=== PATIENT | female | born 2000 | race Caucasian/White ===

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

== ENCOUNTER 2020-07-02 06:00 | Inpatient (IN) ==
[2020-07-02] MEDS ORDERED: Famotidine 20 MG/2 ML VIAL IVP PRN (06:10)
[2020-07-02] MEDS ORDERED: *HR* FentaNYL (PF) 100 MCG/2 ML VIAL IVP PRN (06:10)
[2020-07-02] MEDS ORDERED: Naloxone 0.4 MG/ML INJ IVP PRN (06:10)
[2020-07-02] MEDS ORDERED: Lidocaine 1% 20 ML MDV INFILT PRN (06:10)
[2020-07-02] MEDS ORDERED: Metoclopramide 10 MG/2 ML VIAL IVP PRN (06:10)
[2020-07-02] MEDS ORDERED: miSOPROStoL 25 MCG TABLET VG PRN (06:10)
[2020-07-02] MEDS ORDERED: 0.9 % Sodium Chloride 1,000 ML IVC SCH (06:15)
[2020-07-02] MEDS ORDERED: Penicillin G Potassium 5,000,000 UNIT in 0.9 % Sodium Chloride Mini Bag 100 ML IVPB ONE (06:21)
[2020-07-02] MEDS ORDERED: EPHEDrine 50 MG/ML VIAL IVP PRN (06:31)
[2020-07-02] MEDS ORDERED: Epidural Premix (fent/bupiv) 110 ML EP SCH (06:45)
[2020-07-02 06:52] LABS: Basophils # 0.1 K/mcL (0.0-0.2); Basophils % 0.6 %; Eosinophils # 0.2 K/mcL (0.0-0.6); Eosinophils % 1.5 %; Hematocrit 35.4 % (35.3-44.9); Immature Granulocytes % 0.6 % (0-4); Lymphocytes # 2.1 K/mcL (0.6-4.6); Lymphocytes % 16.9 %; Mean Corpuscular HGB Conc 33.9 g/dL (31.6-35.5); Mean Corpuscular Hemoglobin 30.8 pg (28.0-33.3); Mean Platelet Volume 11.9 fL (9.4-12.4); Monocytes # 0.8 K/mcL (0.0-1.3); Monocytes % 6.5 %; Neutrophils # 9.2 K/mcL (1.6-8.9); Platelet Count 226 K/mcL (140-400); Red Blood Count 3.89 M/mcL (3.82-4.97); Red Cell Distribution Width 12.7 % (11.5-14.5); Segmented Neutrophils % 73.9 %; White Blood Count 12.5 K/mcL (4.3-11.1)
[2020-07-02] MEDS ORDERED: *HR* Dextrose 50 % in Water (Vial) 50 ML VIAL IVP PRN ×2 (07:01→23:20)
[2020-07-02] MEDS ORDERED: Insulin Human Regular 100 UNIT in 0.9 % Sodium Chloride 100 ML IVC SCH (07:15)
[2020-07-02] MEDS ORDERED: D5% in 0.45% NACL 1,000 ML IVC SCH (07:19)
[2020-07-02] MEDS ORDERED: Insulin Regular, Human 100 UNIT/ML SQ ONE (07:20)
[2020-07-02 08:34] LABS: Amphetamine Screen,Urine Negative ng/mL (Cutoff=1000); Barbiturate Screen,Urine Negative ng/mL (Cutoff=200); Benzodiazepines Screen,Urine Negative ng/mL (Cutoff=200); Cannabinoid Screen,Urine Negative ng/mL (Cutoff = 50); Cocaine Screen,Urine Negative ng/mL (Cutoff= 300); Opiate Screen,Urine Negative ng/mL (Cutoff=300); Phencyclidine Screen,Urine Negative ng/mL (Cutoff=25)
[2020-07-02] MEDS ORDERED: Ropivacaine/PF 0.2% 20 ML VIAL ONE (09:40)
[2020-07-02] MEDS ORDERED: *HR* FentaNYL (PF) 100 MCG/2 ML VIAL ONE (09:40)
[2020-07-02] MEDS: Penicillin G Potassium 2,500,000 UNIT/105 ML MLS IVPB SCH ×2 (11:12→15:17)
[2020-07-02] MEDS ORDERED: *HR* Oxytocin 10 UNIT/ML VIAL IM ONE (15:53)
[2020-07-02] MEDS ORDERED: Acetaminophen 325 MG TABLET PO ONE (18:11)
[2020-07-02] MEDS ORDERED: Oxytocin 20 units/ LR 1000 mL 20 UNIT/1,000 ML BAG IVC ONE (19:30)
[2020-07-02] MEDS ORDERED: Acetaminophen 325 MG TABLET PO PRN (23:20)
[2020-07-02] MEDS ORDERED: Dextrose Gel 15 GM/37.5 ML TUBE PO PRN ×2 (23:20)
[2020-07-02] MEDS ORDERED: Lanolin 7 G OINT...G. TP PRN (23:20)
[2020-07-02] MEDS ORDERED: Oxytocin 20 units/ LR 1000 mL 20 UNIT/1,000 ML BAG IVC SCH (23:20)
[2020-07-02] MEDS ORDERED: Benzocaine/Menthol 56 GM AEROSOL SPRAY TP PRN (23:20)
[2020-07-02] MEDS ORDERED: D5% in Water 1,000 ML IVC PRN (23:20)
[2020-07-02] MEDS ORDERED: OXYTOCIN IM SCH (23:30)
[2020-07-02] MEDS ORDERED: SODIUM CHLORIDE 0.9% IM SCH (23:30)
[2020-07-02] MEDS ORDERED: Oxytocin 20 UNIT in 0.9 % Sodium Chloride 1,000 ML IVC SCH (23:45)
[2020-07-02] MEDS: *HR* Buprenorphine HCl 8 MG TAB.SUBL SL SCH (23:53)
[2020-07-02] MEDS: Nicotine 14 MG PATCH.TD24 TD SCH (23:53)
[2020-07-03] MEDS ORDERED: Insulin DETEMIR 100 UNIT/ML X5UNITS SQ ONE (00:38)
[2020-07-03 04:19] LABS: Basophils # 0.1 K/mcL (0.0-0.2); Basophils % 0.3 %; Eosinophils % 0.2 %; Hematocrit 35.8 % (35.3-44.9); Hemoglobin 12.2 g/dL (11.5-15.4); Immature Granulocytes % 0.5 % (0-4); Lymphocytes # 2.2 K/mcL (0.6-4.6); Lymphocytes % 13.7 %; Mean Corpuscular HGB Conc 34.1 g/dL (31.6-35.5); Mean Corpuscular Hemoglobin 31.9 pg (28.0-33.3); Mean Corpuscular Volume 93.5 fL (83.0-100.0); Mean Platelet Volume 11.9 fL (9.4-12.4); Monocytes # 1.1 K/mcL (0.0-1.3); Monocytes % 6.5 %; Neutrophils # 12.7 K/mcL (1.6-8.9); Platelet Count 194 K/mcL (140-400); Red Blood Count 3.83 M/mcL (3.82-4.97); Red Cell Distribution Width 13.1 % (11.5-14.5); Segmented Neutrophils % 78.8 %; White Blood Count 16.1 K/mcL (4.3-11.1)
[2020-07-03] MEDS: Insulin LISPRO 300 UNITS/3 ML VIAL SQ SCH ×3 (08:42→16:51)
[2020-07-03] MEDS: *HR* Buprenorphine HCl 8 MG TAB.SUBL SL SCH ×2 (08:42→20:43)
[2020-07-03] MEDS: Prenatal Vit/FA 1 EACH TABLET PO SCH (08:42)
[2020-07-03] MEDS ORDERED: Oxytocin 20 units/ LR 1000 mL 20 UNIT/1,000 ML BAG IVC SCH (13:45)
[2020-07-03] MEDS: Ibuprofen 600 MG TABLET PO PRN (16:47)
[2020-07-04] MEDS: Ibuprofen 600 MG TABLET PO PRN ×3 (02:40→22:24)
[2020-07-04] MEDS: Insulin LISPRO 300 UNITS/3 ML VIAL SQ SCH ×4 (08:30→22:30)
[2020-07-04] MEDS: Nicotine 14 MG PATCH.TD24 TD SCH ×2 (08:38→20:52)
[2020-07-04] MEDS: Prenatal Vit/FA 1 EACH TABLET PO SCH (08:41)
[2020-07-04] MEDS: *HR* Buprenorphine HCl 8 MG TAB.SUBL SL SCH ×2 (08:42→20:52)
[2020-07-04] MEDS ORDERED: Calcium Gluconate 1,000 MG/10 ML VIAL IVP PRN (11:00)
[2020-07-04 11:36] LABS: Basophils # 0.1 K/mcL (0.0-0.2); Basophils % 0.5 %; Eosinophils # 0.3 K/mcL (0.0-0.6); Eosinophils % 2.6 %; Hematocrit 32.8 % (35.3-44.9); Hemoglobin 11.3 g/dL (11.5-15.4); Immature Granulocytes % 0.8 % (0-4); Lymphocytes # 2.5 K/mcL (0.6-4.6); Lymphocytes % 18.9 %; Mean Corpuscular HGB Conc 34.5 g/dL (31.6-35.5); Mean Corpuscular Hemoglobin 31.1 pg (28.0-33.3); Mean Corpuscular Volume 90.4 fL (83.0-100.0); Mean Platelet Volume 11.4 fL (9.4-12.4); Monocytes # 0.7 K/mcL (0.0-1.3); Monocytes % 5.6 %; Neutrophils # 9.3 K/mcL (1.6-8.9); Platelet Count 207 K/mcL (140-400); Red Blood Count 3.63 M/mcL (3.82-4.97); Red Cell Distribution Width 13.1 % (11.5-14.5); Segmented Neutrophils % 71.6 %; White Blood Count 12.9 K/mcL (4.3-11.1)
[2020-07-04 11:45] LABS: Alanine Aminotransferase 10 Units/L (7-52); Aspartate Amino Transferase 25 Units/L (13-39); BUN/Creatinine Ratio 24 (6-26); Blood Urea Nitrogen 13 mg/dL (6-20); Lactate Dehydrogenase 182 Units/L (140-271); eGFR For African Americans > 60 (> 60); eGFR For Non-African Americans > 60 (> 60)
[2020-07-04] MEDS: Magnesium Sulf 20 gm/SW 500mL 20 GM/500 ML IV.SOLN IVC SCH ×2 (13:38→22:35)
[2020-07-04] MEDS ORDERED: Insulin DETEMIR 100 UNIT/ML X5UNITS SQ SCH (21:00)
[2020-07-05 05:33] LABS: Basophils # 0.1 K/mcL (0.0-0.2); Basophils % 0.6 %; Eosinophils # 0.4 K/mcL (0.0-0.6); Eosinophils % 3.8 %; Immature Granulocytes % 0.5 % (0-4); Lymphocytes # 2.4 K/mcL (0.6-4.6); Lymphocytes % 24.2 %; Mean Corpuscular HGB Conc 34.4 g/dL (31.6-35.5); Mean Corpuscular Hemoglobin 30.9 pg (28.0-33.3); Mean Corpuscular Volume 89.9 fL (83.0-100.0); Mean Platelet Volume 11.2 fL (9.4-12.4); Monocytes # 0.6 K/mcL (0.0-1.3); Monocytes % 6.2 %; Neutrophils # 6.4 K/mcL (1.6-8.9); Platelet Count 244 K/mcL (140-400); Red Blood Count 3.56 M/mcL (3.82-4.97); Segmented Neutrophils % 64.7 %; White Blood Count 9.8 K/mcL (4.3-11.1)
[2020-07-05 05:51] LABS: Alanine Aminotransferase 10 Units/L (7-52); Aspartate Amino Transferase 19 Units/L (13-39); Lactate Dehydrogenase 173 Units/L (140-271); Uric Acid 5.1 mg/dL (2.3-7.6); eGFR For African Americans > 60 (> 60); eGFR For Non-African Americans > 60 (> 60)
[2020-07-05] MEDS: Nicotine 14 MG PATCH.TD24 TD SCH (08:40)
[2020-07-05] MEDS: Prenatal Vit/FA 1 EACH TABLET PO SCH (08:40)
[2020-07-05] MEDS: *HR* Buprenorphine HCl 8 MG TAB.SUBL SL SCH (08:40)
[2020-07-05] MEDS: Magnesium Sulf 20 gm/SW 500mL 20 GM/500 ML IV.SOLN IVC SCH (08:42)
[2020-07-05] MEDS: Ibuprofen 600 MG TABLET PO PRN (09:23)
[2020-07-05] MEDS: Insulin LISPRO 300 UNITS/3 ML VIAL SQ SCH (11:26)
[2020-07-05 15:57] VITALS: BP 124/78
== END 2020-07-05 15:45 | disposition home or self-care (01) | DRG 560 ==
LOC: 1NENULAB 06:00 → 1NENUOBS 23:55
PROVIDERS: ADMIT Obstetrics & Gynecology; ATTEND Obstetrics & Gynecology